=== PATIENT | female | born 1975 | race Caucasian/White ===

== ENCOUNTER 2019-01-07 10:48 | Emergency (ER) | payer OTHER ==
[~2019-01-07] VITALS: Ht 167.6 cm; Wt 80.7 kg
[~2019-01-07 10:48] MED LIST: KETO10TA2 PO; SEPTRA DS TABLE1 TAB PO
== END 2019-01-07 15:22 | disposition home or self-care (01) ==
LOC: ER 10:48
DX: B02.9 Zoster without complications (principal)

== ENCOUNTER → 2020-09-07 08:00 | Outpatient (CLI) | payer OTHER | END | disposition home or self-care (01) | LOC: ADM 07:45 → LAB 08:00 → CIR.AMB 09-13 07:45 → EDSTATUS 09-13 07:45 → CIR.AMB 09-13 08:43 | PROVIDERS: ATTEND Obstetrics & Gynecology Maternal & Fetal Medicine | DX: Z30.2 Encounter for sterilization (principal); Z01.811 Encounter for preprocedural respiratory examination; Z01.812 Encounter for preprocedural laboratory examination; Z01.810 Encounter for preprocedural cardiovascular examination; Z20.822 Contact with and (suspected) exposure to COVID-19 ==